=== PATIENT | female | born 1995 | race Caucasian/White ===

== ENCOUNTER 2017-07-22 18:22 | Emergency (ER) | payer OTHER ==
[2017-07-22 18:54] VITALS: BP 107/88; PULSE 100; RESP 16; TEMP 98.4; O2SAT 97
--- NOTE | 2017-07-22 19:13 | EDPHY ---
H & P Stated Complaint: Diarrhea x 10 d, nasal congestion, fatigue, ear inf at [facility] Time Seen by Provider: 07/22/17 19:06 HPI/ROS: CHIEF COMPLAINT: Diarrhea, sinus congestion, ear pain HISTORY OF PRESENT ILLNESS: The patient is a 22-year-old healthy female with a history of celiac disease whose had diarrhea for about a 10 days, chills, sinus congestion, slight sore throat and now ear pain. She was seen at the urgent care and referred here. She was diagnosed there with bilateral otitis media and prescribed antibiotics. They also did fluid and strep swabs which were negative. She has not yet begun them. She was referred here because of abdominal pain. They are concerned about early appendicitis. The patient however states she does not have pain but simply has diarrhea and cramping. She has had this for 10 days and it is actually improving. She denies any risk of . REVIEW OF SYSTEMS: Constitutional: See HPI EENTM: See HPI Respiratory: denies: cough, shortness of breath Cardiac: denies: chest pain, irregular heart rate, lightheadedness, palpitations Gastrointestinal/Abdominal: denies: abdominal pain, diarrhea, nausea, vomiting, blood streaked stools Genitourinary: denies: dysuria, frequency, hematuria, pain Musculoskeletal: denies: joint pain, muscle pain Skin: denies: lesions, rash, jaundice, bruising Neurological: denies: headache, numbness, paresthesia, tingling, dizziness, weakness Hematologic/Lymphatic: denies: blood clots, easy bleeding, easy bruising Immunologic/allergic: denies: HIV/AIDS, transplant EXAM: GENERAL: Well-appearing, well-nourished and in no acute distress. HEAD: Atraumatic, normocephalic. EYES: Pupils equal round and reactive to light, extraocular movements intact, sclera anicteric, conjunctiva are normal. ENT: Left-sided otitis media, right-sided normal, nares patent, oropharynx clear without exudates. Moist mucous membranes. NECK: Normal range of motion, supple without lymphadenopathy or JVD. LUNGS: Breath sounds clear to auscultation bilaterally and equal. No wheezes rales or rhonchi. HEART: Regular rate and rhythm without murmurs, rubs or gallops. ABDOMEN: Soft, nontender, normoactive bowel sounds. No guarding, no rebound. No masses appreciated. BACK: No CVA tenderness, no spinal tenderness, step-offs or deformities EXTREMITIES: Normal range of motion, no pitting or edema. No clubbing or cyanosis. NEUROLOGICAL: Cranial nerves II through XII grossly intact. Normal speech, normal gait. 5/5 strength, normal movement in all extremities, normal sensation PSYCH: Normal mood, normal affect. SKIN: Warm, dry, normal turgor, no visible rashes or lesions. Source: Patient Exam Limitations: No limitations - Personal History LMP (Females 10-55): 15-21 Days Ago Current Tetanus/Diphtheria Vaccine: Unsure Current Tetanus Diphtheria and Acellular Pertussis (TDAP): Unsure - Medical/Surgical History Hx Asthma: No Hx Chronic Respiratory Disease: No Hx Diabetes: No Hx Cardiac Disease: No Hx Renal Disease: No Hx Cirrhosis: No Hx Alcoholism: No Hx HIV/AIDS: No Hx Splenectomy or Spleen Trauma: No Other PMH: denies. no surgeries - Family History Significant Family History: No pertinent family hx - Social History Smoking Status: Never smoked Alcohol Use: Sober Constitutional: Initial Vital Signs Temperature (C) 36.9 C 07/22/17 18:32 Heart Rate 100 07/22/17 18:32 Respiratory Rate 16 07/22/17 18:32 Blood Pressure 107/88 H 07/22/17 18:32 O2 Sat (%) 97 07/22/17 18:32 O2 Delivery Mode Room Air Allergies/Adverse Reactions: No Known Allergies Allergy (Unverified 07/22/17 18:31) Home Medications: Medication Instructions Recorded NK [No Known Home Meds] 07/22/17 Medical Decision Making ED Course/Re-evaluation: Patient clinically is very well appearing. She has absolutely no abdominal tenderness. She does not complain of abdominal pain. We did check a urine here which is negative. We discussed CT scanning which I do not feel is indicated because of her lack of symptoms and pain as well as the duration. She agrees and would not like to do any imaging at this time. She does have mild otitis media on the left but not the right. She has already been prescribed antibiotics at the urgent care and will begin taking them. Based on her symptoms I suspect that she is about 10 or 11 days into the influenza virus and that her swab at the urgent care was false negative. It is too late to begin Tamiflu. Patient is tolerating p.o.. We discussed indications for returning. Differential Diagnosis: Partial list of the Differential diagnosis considered include but were not limited to; otitis media, upper respiratory tract infection, influenza, gastritis, diarrhea, celiac disease and although unlikely based on the history and physical exam, I also considered appendicitis, urinary tract infection, kidney stone, . I discussed these differential diagnoses and the plan with the patient as well as the usual and expected course. The patient understands that the diagnosis is provisional and that in medicine we are not always correct and that further workup is often warranted. Usual and customary warnings were given. All of the patient's questions were answered. The patient was instructed to return to the emergency department should the symptoms at all worsen or return, otherwise to followup with the physician as we discussed. - Data Points Laboratory Results: 07/22/17 18:45 Urine Color YELLOW Urine Appearance CLEAR Urine pH 6.0 (5.0-7.5) Ur Specific Gordon 1.011 (1.002-1.030) Urine Protein NEGATIVE (NEGATIVE) Urine Ketones NEGATIVE (NEGATIVE) Urine Blood 1+ H (NEGATIVE) Urine Nitrate NEGATIVE (NEGATIVE) Urine Bilirubin NEGATIVE (NEGATIVE) Urine Urobilinogen NEGATIVE EU EU (0.2-1.0) Ur Leukocyte Esterase NEGATIVE (NEGATIVE) Urine RBC 1-3 /hpf /hpf (0-3) Urine WBC 1-3 /hpf /hpf (0-3) Ur Epithelial Cells TRACE /lpf /lpf (NONE-1+) Urine Bacteria 1+ /hpf H /hpf (NONE SEEN) Urine Mucus TRACE /lpf /lpf (NONE-1+) Urine Glucose NEGATIVE (NEGATIVE) Departure - Departure Disposition: Home, Routine, Self-Care Clinical Impression: Otitis media Qualifiers: Otitis media type: suppurative Chronicity: acute Laterality: left Recurrence: not specified as recurrent Spontaneous tympanic membrane rupture: without spontaneous rupture Qualified Code(s): H66.002 - Acute suppurative otitis media without spontaneous rupture of ear drum, left ear Condition: Fair Instructions: Serous Otitis Media (ED) Referrals: NONE *PRIMARY CARE P,. [Unknown] - As per Instructions
== END 2017-07-22 19:15 | disposition home or self-care (01) ==
DX: H66.002 Acute suppurative otitis media without spontaneous rupture of ear drum, left ear (principal)

== ENCOUNTER 2018-06-28 16:08 | Emergency (ER) | payer OTHER ==
--- NOTE | 2018-06-28 16:27 | EDPHY ---
H & P Stated Complaint: h/a, nausea, body aches, sore thrt, neck stiff & dizzy x 30 mins Time Seen by Provider: 06/28/18 16:26 HPI/ROS: CHIEF COMPLAINT: Sore throat, headache, myalgias, nausea HISTORY OF PRESENT ILLNESS: The patient is a 23 y/o female arriving with her friend complaining of acute onset sore throat, headache, myalgias, and nausea for the last 30 minutes. She has associated dizziness that she describes as " not vertigo, it's like I'm spinning, not the world spinning and like I'm off balance." She has some abdominal discomfort with deep inspiration, though mentions she's had ongoing unexplained abdominal pain for the last several months worked up and followed by specialists. She has not taken anything for symptoms yet. She did not receive a flu vaccination this season, but believes she is up-to-date with the [employer] vaccination requirement including meningitis. She notes that she left a tampon in for 2 days but removed at this evening. She has not had vaginal discharge. She denies pelvic pain. She denies cough, vomiting, diarrhea, urinary symptoms, unilateral weakness or paresthesias, confusion, visual changes, fever. REVIEW OF SYSTEMS: A ten system review of systems was performed and is negative with the exception of the items mentioned in the HPI. Past medical history: 1. Chronic lyme disease in high school 2. Unexplained abdominal pain last fall followed by specialist with imaging and labs ([facility]). Past surgical history: Denies Family history: Noncontributory Social history: Nonsmoker. [employer] student. No illicit drugs. Social alcohol use. Friend at bedside. Lives in [place]. General Appearance: Alert. Vital signs reviewed. HR 118. Eyes: Pupils equal and round, no conjunctival injection, no discharge. Anicteric. ENT, Mouth: TMs clear bilaterally. Mucous membranes are moist, no oropharyngeal erythema or edema. Neck: No lymphadenopathy, supple. No meningeal signs. Respiratory: Lungs are clear to auscultation; no wheezes, rales, or rhonchi. Cardiovascular: Tachycardic regular rate and rhythm; no murmur, rub, or gallop. Gastrointestinal: Abdomen is soft and nontender, no masses or organomegaly. Skin: Warm and dry, no rashes on exposed skin, normal color. Back: Nontender to palpation over the thoracolumbar spine. No CVAT. Extremities: No lower extremity edema, no calf tenderness or swelling. Neurological: Alert and oriented. Moving all four extremities easily and equally. CONCHITA. EOMI. Facial expression symmetric. Tongue midline. Strength 5/5 in all major motor groups of upper and lower extremities. Sensation intact to light touch over all 4 extremities. Psychiatric: Normal affect. - Personal History LMP (Females 10-55): 1-7 Days Ago - Medical/Surgical History Hx Asthma: No Hx Chronic Respiratory Disease: No Hx Diabetes: No Hx Cardiac Disease: No Hx Renal Disease: No Hx Cirrhosis: No Hx Alcoholism: No Hx HIV/AIDS: No Hx Splenectomy or Spleen Trauma: No Other PMH: lyme dz - Social History Smoking Status: Never smoked Constitutional: Initial Vital Signs Temperature (C) 36.8 C 06/28/18 16:11 Heart Rate 118 H 06/28/18 16:11 Respiratory Rate 20 06/28/18 16:11 Blood Pressure 102/71 06/28/18 16:11 O2 Sat (%) 99 06/28/18 16:11 O2 Delivery Mode Room Air Allergies/Adverse Reactions: No Known Allergies Allergy (Verified 06/28/18 16:10) Home Medications: Medication Instructions Recorded NK [No Known Home Meds] 07/22/17 Medical Decision Making ED Course/Re-evaluation: This is a 23 y/o female who presents with a 30 minute history of acute onset myalgias, sore throat, headache, and dizziness. She is tachycardic and afebrile. No meningeal signs on exam. Abdomen is benign. Presentation most consistent with infectious process like influenza. Plan for IV, flu swab, and symptomatic management. 1L IV NS, 4mg IV Zofran, and 650mg PO Tylenol ordered. 1740: Reassessed patient. She is feeling increasingly achy, uncomfortable, and is still nauseated. Her mother is now at bedside. She now mentions she had left a tampon in for a few days and just removed it prior to arrival here. She denies any lower abdominal pain, urinary symptoms, or vaginal discharge. Doubt toxic shock syndrome. She does not have fever. I have not seen a rash or erythroderma. She has not had vomiting or diarrhea. Her platelets are normal as is her kidney function. She does not have any neurologic signs such as somnolence or confusion or hallucinations. 15mg IV Toradol and labs ordered. Flu swab negative. WBC elevated around 15. Patient is feeling slightly better, but still slightly tachycardic. Additional 1L IV NS ordered. Reassessed patient and discussed findings. She is still feeling ill. Additional 1L IV NS ordered. All total, she received 3 L IV fluid in the emergency department. She was able to ambulate independently to the bathroom and urinated. She remained with relative hypotension with systolic pressures in the 80s. She tells me that her systolic blood pressure is usually just over 100. At the time of discharge, well standing, she had a systolic pressure of 105. She did not feel dizzy or lightheaded. As above, I do not think that she has TSS. Both she and her mother feel comfortable returning home. We discussed symptomatic treatment. We also reviewed the danger signs that should prompt her to be re-evaluated immediately. It continues to be my impression that she has a viral syndrome, a flu-like illness. She was re-evaluated serially while in the department. At no time did she have neck pain or stiffness or other meningeal signs. I do not think that she has a bacterial or viral meningitis. She remained alert and oriented. She did not have fever. She did not have headache (she had one on arrival, but this resolved). Addendum on 06/29/2018. At 4:15 a.m. I spoke with the patient's mother--I had phoned earlier to check on her daughter. She tells me that her daughter ate lunch today but when she tries to get up out of bed she is so dizzy that she feels that she can't stand. She is also developed fever today with a temperature around 101. I continue to be concerned about the possibility of toxic shock, more so now that I hear how she is doing today. I realize that TSS is not common, but am worried about it in this setting. Flu-like viral illness also possible, but the dizziness that she is experiencing makes me think that she might be hypotensive. I recommended that she take her to the closest medical facility for re-evaluation. (They are in [place]). Differential Diagnosis: I considered a differential diagnosis that includes but is not limited to influenza, flu-like illness/viral syndrome, toxic shock syndrome, meningitis, pharyngitis, mononucleosis. - Data Points Laboratory Results: Laboratory Results 06/28/18 16:43 06/28/18 16:43 Medications Given: Discontinued Medications Acetaminophen (Tylenol) 650 mg PO EDNOW ONE Stop: 06/28/18 16:46 Last Admin: 06/28/18 16:50 Dose: 650 mg Sodium Chloride (Ns) 1,000 mls @ 0 mls/hr IV EDNOW ONE; Wide Open PRN Reason: Protocol Stop: 06/28/18 16:46 Last Admin: 06/28/18 16:47 Dose: 1,000 mls Sodium Chloride (Ns) 1,000 mls @ 0 mls/hr IV ONCE ONE; Wide Open PRN Reason: Protocol Stop: 06/28/18 18:44 Last Admin: 06/28/18 18:46 Dose: 1,000 mls Sodium Chloride (Ns) 1,000 mls @ 0 mls/hr IV ONCE ONE; Wide Open PRN Reason: Protocol Stop: 06/28/18 19:40 Last Admin: 06/28/18 20:15 Dose: 1,000 mls Ketorolac Tromethamine (Toradol) 30 mg IVP EDNOW ONE Stop: 06/28/18 17:46 Last Admin: 06/28/18 17:49 Dose: 30 mg Ondansetron HCl (Zofran) 4 mg IVP EDNOW ONE Stop: 06/28/18 16:46 Last Admin: 06/28/18 16:49 Dose: 4 mg Departure - Departure Disposition: Home, Routine, Self-Care Clinical Impression: Viral syndrome Condition: Good Instructions: Viral Syndrome (ED) Additional Instructions: 1. Tylenol and ibuprofen as directed for achiness and fever over the next few days. 2. Increase fluid intake. 3. Follow up with your primary care provider as needed for unimproved symptoms over the next 3-5 days. 4. Practice good hand hygiene and cover your cough/sneeze to prevent spread of infection to others. You can remain infectious even several days after symptoms have resolved. 5. Return to the ED for worsening of condition. Adult Pain & Fever Control: We recommend Acetaminophen (Tylenol) and Ibuprofen (Motrin,Advil) for pain and fever control. When fever is high or pain severe, both drugs can be used at the same time, but at different intervals. Please note the time differences. Your dose is: Acetaminophen 650mg every 4 to 6 hours Ibuprofen 600mg every 8 hours with food Note: do not take Acetaminophen with Hydrocodone (Vicodin, Lortab) or Oxycodone (Percocet). These medications also contain Acetaminophen. No more than 3000mg of Acetaminophen should be taken in 24 hours (for an adult). Referrals: [facility] ,. [Clinic] - As per Instructions Ann Tran MD [Medical Doctor] - As per Instructions Stand Alone Forms: School Excuse Report Scribed for: Ioana Whalen Report Scribed by: Susan Benito Date of Report: 06/28/18 Time of Report: 16:56 Physician Review and Approval Statement: 06/28/18 16:27 Portions of this note were transcribed by the medical lab technologist. I, Dr. Ioana Whalen, personally performed the history, physical exam, and medical decision- making; and confirmed the accuracy of the information in the transcribed note.
[2018-06-28] MEDS ORDERED: NS 1,000 ML IV ONE ×3 (16:45→19:39)
[2018-06-28] MEDS ORDERED: ACETAMINOPHEN 325 MG TAB PO ONE (16:45)
[2018-06-28] MEDS ORDERED: ONDANSETRON 4 MG/2 ML VIAL IVP ONE (16:45)
[2018-06-28] MEDS ORDERED: KETOROLAC 30 MG/1 ML SDV IVP ONE (17:45)
[2018-06-28 18:05] LABS: PLATELET COUNT 238 10^3/uL (150-400)
[2018-06-28 21:22] VITALS: BP 107/60
== END 2018-06-28 21:22 | disposition home or self-care (01) ==
DX: B34.9 Viral infection, unspecified (principal); R11.0 Nausea
CPT/HCPCS: 96374; J1885; J2405